=== PATIENT | female | born 1960 | race Caucasian/White ===

== ENCOUNTER 2021-02-04 07:14 | Emergency (ER) | payer SELFPAY ==
[2021-02-04] MEDS ORDERED: SODIUM CHLORIDE 1,000 ML IV STA (07:34)
[2021-02-04] MEDS ORDERED: ACETAMINOPHEN 1000 MG/100 ML VIAL IVPB ONE (07:39)
[2021-02-04 07:44] VITALS: BP 152/82; PULSE 104; TEMP 97.9
[2021-02-04] MEDS ORDERED: ACETAMINOPHEN INJECTION 100 ML IVPB ONE (07:47)
[2021-02-04 08:32] LABS: BASO % 0.3 % (0-2.0); EOS % 1.2 % (0-4.5); HEMATOCRIT 38.8 % (32.4-45.2); HEMOGLOBIN 13.3 GM/dL (10.7-15.3); LYMPH % 37.2 % (8-40); MCH 30.9 pg (25.7-33.7); MCHC 34.3 g/dl (32.0-36.0); MEAN CELL VOLUME 90.3 fl (80-96); MEAN PLT VOLUME 7.2 fl (7.5-11.1); MONO % 6.3 % (3.8-10.2); PLATELET COUNT 308 10^3/uL (134-434); RDW 12.6 % (11.6-15.6); WHITE BLOOD COUNT 5.5 K/mm3 (4.0-10.0)
[2021-02-04 08:34] LABS: EPI CELLS 8 /uL (0-25.1); HYALINE CASTS 1 /uL (0-3.1); URINE APPEARANCE CLEAR; URINE BACTERIA 20 /uL (0-1359); URINE BILIRUBIN NEGATIVE (NEGATIVE); URINE COLOR YELLOW; URINE GLUCOSE (UA) NEGATIVE (NEGATIVE); URINE KETONE NEGATIVE (NEGATIVE); URINE LEUK ESTERASE TRACE (NEGATIVE); URINE NITRITE NEGATIVE (NEGATIVE); URINE PROTEIN NEGATIVE (NEGATIVE); URINE RBC 21 /uL (0-23.9); URINE UROBILINOGEN 0.2 mg/dL (0.2-1.0); URINE WBC 26 /uL (0-25.8)
[2021-02-04 08:52] LABS: CALCIUM 9.2 mg/dL (8.5-10.1)
[2021-02-04 08:53] LABS: BLOOD UREA NITROGEN 9.7 mg/dL (7-18)
[2021-02-04 08:56] LABS: CREATININE 0.7 mg/dL (0.55-1.3); TOT PROT 8.5 g/dl (6.4-8.2)
[2021-02-04 08:59] LABS: BILIRUBIN,TOTAL 0.5 mg/dL (0.2-1)
== END 2021-02-04 11:38 | disposition home or self-care (01) ==
LOC: JER 07:14
PROC: 3E033NZ Introduction of Analgesics, Hypnotics, Sedatives into Peripheral Vein, Percutaneous Approach (ICD-10-PCS; principal; 2021-02-04)
PROC: 3E0337Z Introduction of Electrolytic and Water Balance Substance into Peripheral Vein, Percutaneous Approach (ICD-10-PCS; 2021-02-04)
DX: R10.9 Unspecified abdominal pain (principal)
CPT/HCPCS: 36415; 74177-TC; 80053; 81003; 83690; 85025; 86850; 86900; 86901; 87086; 93005; 93010; 99285-25; C9803; J0131; Q9967; U0003; U0005